=== PATIENT | female | born 1975 | race Caucasian/White ===

== ENCOUNTER 2018-11-01 12:49 | Emergency (ER) | payer BC ==
--- NOTE | 2018-11-01 13:46 | EDM.PDOC ---
<Joaquina Conti M - Last Filed: 11/01/18 14:35> ED HPI GENERAL MEDICAL PROBLEM - General Chief Complaint: Skin Complaint Stated Complaint: LARGE LUMP ON NECK Time Seen by Provider: 11/01/18 13:21 Source of Information: Reports: Patient History Limitations: Reports: No Limitations - History of Present Illness Onset Date: 10/24/18 Duration: Week(s): (past two weeks) Location: Reports: Neck (left posterior, within hairline at base of neck ) Quality: Reports: Ache, Pressure Severity: Moderate (has increased in past few days and left work to be seen.) Worsens with: Reports: None Associated Symptoms: Reports: No Other Symptoms Left Upper Neck Pain Score (Numeric/FACES): 9 - Related Data Allergies Allergy/AdvReac Type Severity Reaction Status Date / Time No Known Allergies Allergy Verified 01/28/14 11:18 Home Meds: Home Meds Ibuprofen 800 mg PO PRN 12/01/13 [History] Norethindrone [Faby] 0.35 mg PO DAILY 12/01/13 [History] Past Medical History - Past Surgical History HEENT Surgical History: Reports: Other (See Below) Other HEENT Surgeries/Procedures: bronchial cyst removal left side Social & Family History - Tobacco Use Smoking Status *Q: Never Smoker - Caffeine Use Caffeine Use: Reports: Coffee, Soda ED ROS GENERAL - Review of Systems Review Of Systems: ROS reveals no pertinent complaints other than HPI. Constitutional: Reports: No Symptoms Respiratory: Reports: No Symptoms Cardiovascular: Reports: No Symptoms Musculoskeletal: Reports: Neck Pain (not musculoskeletal, superficial dermal pain) Neurological: Reports: Trouble Speaking ED EXAM, SKIN/RASH Exam: See Below Exam Limited By: No Limitations General Appearance: Alert, WD/WN, No Apparent Distress Neck: Normal Inspection, Supple, Non-Tender (except left posterior over palpable mass. ) Respiratory/Chest: No Respiratory Distress Location, Skin: Neck (left posterior at base of hairline. 3 x 4 cm erythematous raised lesion. Fluctuant. Very tender to palpation. ) ED SKIN PROCEDURES - I&D Skin Prep: Isopropyl Alcohol (Alcohol) Local Anesthesia: Lidocaine: 1% with EPI Local Anesthetic Volume: 3cc Area Incised With: 11 Blade Drainage: Bloody, Moderate Amount Probed to Break Up Loculations: Yes Packed With: 1/4 in. Iodoform Sterile Dressinx4(s) Complications: No (prescription for antibiotics given and will follow up with own provider in 3 days for re-packing if necessary.) Course - Vital Signs Last Recorded V/S: Last Vital Signs Temp 98 F 11/01/18 13:08 Pulse 98 11/01/18 13:08 Resp 16 11/01/18 13:08 BP 163/103 H 11/01/18 13:08 Pulse Ox 98 11/01/18 13:08 - Orders/Labs/Meds Orders: Active Orders 24 hr Category Date Time Status CULTURE WOUND + SMEAR [RM] Stat Lab 11/01/18 14:46 Ordered Meds: Medications Discontinued Medications Generic Name Dose Route Start Last Admin Trade Name Freq PRN Reason Stop Dose Admin Lidocaine/Epinephrine 20 ml 11/01/18 13:58 11/01/18 14:41 Xylocaine 1% With Epinephrine 1:100,000 SUBCUT 11/01/18 13:59 20 ml NOW STA Administration Departure - Departure Disposition: Home, Self-Care 01 Clinical Impression: Boil of neck - Discharge Information Referrals: Vinicio Rivera MD [Primary Care Provider] - Forms: ED Department Discharge Additional Instructions: Take full course of antibiotics, Please followup with your primary care provider in 3-5 days if not better, please call return to the emergency department with worsening of symptoms. - My Orders Last 24 Hours: My Active Orders 11/01/18 14:46 CULTURE WOUND + SMEAR [RM] Stat - Assessment/Plan Last 24 Hours: My Active Orders 11/01/18 14:46 CULTURE WOUND + SMEAR [RM] Stat <OfficerEfra - Last Filed: 11/01/18 14:53> ED HPI GENERAL MEDICAL PROBLEM - History of Present Illness INITIAL COMMENTS - FREE TEXT/NARRATIVE: 43-year-old female presents emergency department today with red firm area on the back of her neck she states this developed over the last week or so it is painful tender to touch he denies any fevers ED EXAM, SKIN/RASH Text/Narrative:: Agree with exam below Location, Skin: Neck ED SKIN PROCEDURES - I&D Site: neck Departure - Departure Time of Disposition: 14:53 Condition: Fair - Assessment/Plan Plan: Assessment Acuity = acute Site and laterality = boil, neck abcess Etiology = probable bacterial cause Manifestations = none Location of injury = Home Lab values = wound cultures pending Plan She had good relief with the incision and drainage she was placed on Bactrim DS 1 tab by mouth twice a day 10 days to follow-up with her primary care in 3 days for recheck of the wound and repacking if needed This note was dictated using codetag voice recognition software please call with any questions on syntax or grammar.
[2018-11-01] MEDS ORDERED: Lidocaine 1% with EPINEPHrine 1:100,000 50 ML MDV SUBCUT STA (13:58)
== END 2018-11-01 15:01 | disposition home or self-care (01) ==
LOC: JP.ED 12:49
DX: L02.11 Cutaneous abscess of neck (principal); L02.12 Furuncle of neck; Z79.899 Other long term (current) drug therapy
CPT/HCPCS: 10060; 87070; 87077; 87186; 87205; 99284

== ENCOUNTER 2018-11-16 17:00 | Emergency (ER) | payer BC ==
--- NOTE | 2018-11-16 17:52 | EDM.PDOC ---
<Patricia Navarro - Last Filed: 11/16/18 17:46> ED HPI GENERAL MEDICAL PROBLEM - General Chief Complaint: Fever Stated Complaint: ILLNESS Time Seen by Provider: 11/16/18 17:49 Source of Information: Reports: Patient History Limitations: Reports: No Limitations - History of Present Illness INITIAL COMMENTS - FREE TEXT/NARRATIVE: In Sep pt had as bronchiol cyst removed from her left neck. She developed a abcee in the post neckabout 2 weeks ago. She had this drained. This is healing up well. She had 3 weeks of bactrim. Pt now has swelling in the left neck. She is spiking temps and she is very tender. Onset: Other ( Started with a fever on Sat. 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: Musculoskeletal History: Reports: Fracture Other Musculoskeletal History: r ankle fx Dermatologic History: Reports: Other (See Below) Other Dermatologic History: scalp abcess - Infectious Disease History Infectious Disease History: Reports: Chicken Pox, MRSA - Past Surgical History HEENT Surgical History: Reports: Other (See Below) Other HEENT Surgeries/Procedures: bronchial cyst removal left side Sep 1711/2018 GI Surgical History: Reports: Cholecystectomy Social & Family History - Tobacco Use Smoking Status *Q: Current Some Day Smoker Years of Tobacco use: 4 Packs/Tins Daily: 0 Used Tobacco, but Quit: No Tobacco Use Comment: smokes cigars occasionaly Second Hand Smoke Exposure: Yes - Caffeine Use Caffeine Use: Reports: Coffee - Alcohol Use Days Per Week of Alcohol Use: 0 - Recreational Drug Use Recreational Drug Use: No ED ROS ENT - Review of Systems Review Of Systems: See Below Constitutional: Reports: Fever, Malaise, Other ( swelling on the left side of the neck. ) HEENT: Reports: No Symptoms, Other (pt has swelling and tenderness on the left neck area. ) Respiratory: Reports: No Symptoms Cardiovascular: Reports: No Symptoms Endocrine: Reports: No Symptoms GI/Abdominal: Reports: No Symptoms : Reports: No Symptoms Musculoskeletal: Reports: No Symptoms Skin: Reports: No Symptoms ED EXAM, ENT - Physical Exam Exam: See Below Text/Narrative:: pt arrived with a fever and swelling on the left side of her neck. Pt had a bronchiol cyst removed from that side in Sep with Dr Deluca Exam Limited By: No Limitations General Appearance: Alert, Anxious, Mild Distress, Other (pupils are equal and reactive. ) Ears: Normal TMs Nose: Normal Inspection Mouth/Throat: Normal Inspection Head: Atraumatic Neck: Lymphadenopathy (R), Lymphadenopathy (L), Other (Pt has swellin on the left side of the neck. She is very tender in the site. She does have a fever. The culture from the abcess in the back of the neck did show MRSA) Cardiovascular: Regular Rate, Rhythm Neurological: Alert, Oriented, Normal Cognition Psychiatric: Anxious Course - Vital Signs Last Recorded V/S: Last Vital Signs Temp 38.3 C H 11/16/18 19:35 Pulse 111 H 11/16/18 19:35 Resp 16 11/16/18 19:35 BP 131/87 11/16/18 19:35 Pulse Ox 98 11/16/18 19:35 - Orders/Labs/Meds Orders: Active Orders 24 hr Category Date Time Status CULTURE BLOOD [BC] Stat Lab 11/16/18 19:43 Ordered CULTURE BLOOD [BC] Stat Lab 11/16/18 19:44 Ordered Iopamidol [Isovue-300 (61%)] Med 11/16/18 18:00 Active 100 ml IV . DIRECTED Sodium Chloride 0.9% [Normal Saline] 80 ml Med 11/16/18 18:00 Active IV ASDIRECTED Sodium Chloride 0.9% [Saline Flush] Med 11/16/18 17:54 Active 10 ml FLUSH ASDIRECTED PRN Vancomycin 1 gm Med 11/16/18 19:38 Active Sodium Chloride 0.9% [Normal Saline] 250 ml IV ONETIME Medication Orders Sodium Chloride (Normal Saline) 80 mls @ 3 mls/sec IV ASDIRECTED OCTAVIO Last Admin: 11/16/18 18:20 Dose: 3 mls/sec Vancomycin HCl 1 gm/ Sodium (Chloride) 250 mls @ 150 mls/hr IV ONETIME ONE Stop: 11/16/18 21:17 Iopamidol (Isovue-300 (61%)) 100 ml IV . DIRECTED OCTAVIO Last Admin: 11/16/18 18:21 Dose: 100 ml Sodium Chloride (Saline Flush) 10 ml FLUSH ASDIRECTED PRN PRN Reason: Keep Vein Open Last Admin: 11/16/18 18:20 Dose: 10 ml Admin: 11/16/18 18:04 Dose: 10 ml Labs: Laboratory Tests 11/16/18 11/16/18 11/16/18 Range/Units 17:59 17:59 17:59 WBC 4.4 L (4.5-11.0) K/uL RBC 4.61 (3.30-5.50) M/uL Hgb 13.5 (12.0-15.0) g/dL Hct 41.3 (36.0-48.0) % MCV 90 (80-98) fL MCH 29 (27-31) pg MCHC 33 (32-36) % Plt Count 273 (150-400) K/uL Neut % (Auto) 60 (36-66) % Lymph % (Auto) 23 L (24-44) % [place] % (Auto) 13 H (2-6) % Eos % (Auto) 4 (2-4) % Baso % (Auto) 1 (0-1) % Sodium 137 L (140-148) mmol/L Potassium 3.5 L (3.6-5.2) mmol/L Chloride 99 L (100-108) mmol/L Carbon Dioxide 28 (21-32) mmol/L Anion Gap 13.5 (5.0-14.0) mmol/L BUN 16 (7-18) mg/dL Creatinine 0.8 (0.6-1.0) mg/dL Est Cr Clr Drug Dosing 85.64 mL/min Estimated GFR (MDRD) > 60 (>60) Glucose 87 (74-106) mg/dL Calcium 8.5 (8.5-10.1) mg/dL Total Bilirubin 0.2 (0.2-1.0) mg/dL AST 21 (15-37) U/L ALT 23 (12-78) U/L Alkaline Phosphatase 81 (46-116) U/L C-Reactive Protein 1.21 H (0.0-0.3) mg/dL Total Protein 7.6 (6.4-8.2) g/dL Albumin 3.7 (3.4-5.0) g/dL Globulin 3.9 H (2.3-3.5) g/dL Albumin/Globulin Ratio 1.0 L (1.2-2.2) Meds: Medications Generic Name Dose Route Start Last Admin Trade Name Freq PRN Reason Stop Dose Admin Sodium Chloride 80 mls @ 3 mls/sec 11/16/18 18:00 11/16/18 18:20 Normal Saline IV 3 mls/sec ASDIRECTED OCTAVIO Administration Vancomycin HCl 1 gm/ Sodium 250 mls @ 150 mls/hr 11/16/18 19:38 Chloride IV 11/16/18 21:17 ONETIME ONE Iopamidol 100 ml 11/16/18 18:00 11/16/18 18:21 Isovue-300 (61%) IV 100 ml . DIRECTED OCTAVIO Administration Sodium Chloride 10 ml 11/16/18 17:54 11/16/18 18:20 Saline Flush FLUSH 10 ml ASDIRECTED PRN Administration Keep Vein Open Discontinued Medications Generic Name Dose Route Start Last Admin Trade Name Freq PRN Reason Stop Dose Admin Acetaminophen 1,000 mg 11/16/18 19:40 Tylenol Extra Strength PO 11/16/18 19:41 ONETIME ONE Departure - Departure Disposition: Home, Self-Care 01 Clinical Impression: Neck infection - Discharge Information Referrals: Vinicio Rivera MD [Primary Care Provider] - Forms: ED Department Discharge - My Orders Last 24 Hours: My Active Orders 11/16/18 19:38 Vancomycin 1 gm Sodium Chloride 0.9% [Normal Saline] 250 ml IV ONETIME 11/16/18 19:43 CULTURE BLOOD [BC] Stat 11/16/18 19:44 CULTURE BLOOD [BC] Stat - Assessment/Plan Last 24 Hours: My Active Orders 11/16/18 19:38 Vancomycin 1 gm Sodium Chloride 0.9% [Normal Saline] 250 ml IV ONETIME 11/16/18 19:43 CULTURE BLOOD [BC] Stat 11/16/18 19:44 CULTURE BLOOD [BC] Stat <Jose Moctezuma G - Last Filed: 11/16/18 19:50> Course - Vital Signs Text/Narrative:: Case discussed with Dr. Draper, [facility] @ 1938h. Recommends a dose of IV Vanco and then transfer. Dr. Jaimes accepts in transfer @ 1944h Departure - Departure Time of Disposition: 21:25 Condition: Fair - Discharge Information *PRESCRIPTION DRUG MONITORING PROGRAM REVIEWED*: No *COPY OF PRESCRIPTION DRUG MONITORING REPORT IN PATIENT MYRIAM: No
[2018-11-16] MEDS ORDERED: Sodium Chloride 0.9% 80 ML IV SCH (18:00)
[2018-11-16] MEDS ORDERED: Iopamidol 612 MG/ML 100 ML Bottle IV SCH (18:00)
[2018-11-16] MEDS: Sodium Chloride 0.9% 10 ML Syringe FLUSH PRN ×2 (18:04→18:20)
--- NOTE | 2018-11-16 18:54 | CRLCT ---
INDICATION: Tenderness on the left side of the neck TECHNIQUE: CT of the neck with 100 cc Isovue-300 iodinated contrast agent. Coronal and sagittal reconstructions are included. COMPARISON: Neck CT from 02/23/2018 FINDINGS: Since the prior examination, interval resection of the predominantly cystic lesion posterior to the angle of the mandible. This lesion is no longer clearly visualized. There is a cystic and solid appearing mass at the left level 2b luca station, which measures 1.8 centimeters and likely represents a necrotic lymph node. A cystic and solid lymph node is seen at the right level 2b luca station measuring 1.2 centimeters. A cystic/necrotic appearing lesion is seen within the left posterior neck at the margin of the subcutaneous fat and paraspinous fascia, and there is additionally adjacent skin thickening, series 7, image 23. Several other mildly prominent but non necrotic lymph nodes are seen at the bilateral level 2, 3 and 5 luca stations. No inflammatory change within the soft tissues. All the major vascular structures opacify normally with contrast material. Aberrant right subclavian artery. The salivary glands and thyroid gland are normal in appearance. The paranasal sinuses and mastoid air cells are clear. The airway is widely patent. The oral cavity, pharyngeal and laryngeal spaces are normal in appearance. No lytic or blastic process within the imaged osseous structures. No periapical lucencies surrounding the visualized teeth. The paraspinous muscles are symmetric and normal in appearance. Visualized portions of the brain are within normal limits. The orbital contents are normal. No abnormality is demonstrated in the mediastinum or supraclavicular regions. No pneumothorax or pleural effusion. The visualized pulmonary apices are clear. IMPRESSION: 1. Since the prior examination, interval resection of the cystic lesion at the angle of the mandible on the left. There are two new necrotic lymph node seen at the left level IIb and right level IIb luca stations, as well as multiple additional enlarged but none necrotic-appearing lymph nodes at the bilateral level 2, 3 and 5 luca stations. There is additionally a new ill-defined lesion with central cystic change or necrosis within the subcutaneous soft tissues overlying the left posterior paraspinous musculature, with associated skin thickening. 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 The left posterior subcutaneous lesion could potentially represent a squamous cell carcinoma of skin. Direct sampling of any of the cystic/necrotic lesions should be considered. 2. No definite primary malignancy is identified within the nasopharynx, oropharynx or larynx. Please note that all CT scans at this facility use dose modulation, iterative reconstruction, and/or weight-based dosing when appropriate to reduce radiation dose to as low as reasonably achievable. Dictated by Brenton Delgado MD @ Nov 17 2018 8:29AM Signed by Dr. Brenton Delgado @ Nov 17 2018 8:47AM
[2018-11-16] MEDS ORDERED: Acetaminophen 500 MG Tab PO ONE (19:40)
== END 2018-11-16 21:57 ==
LOC: JP.ED 17:00
DX: L08.9 Local infection of the skin and subcutaneous tissue, unspecified (principal); F17.210 Nicotine dependence, cigarettes, uncomplicated; Z79.899 Other long term (current) drug therapy
CPT/HCPCS: 36415; 70491; 80053; 85025; 86140; 87040; 96365; 96366; 99284; A9270; J3370; J7030; J7050; Q9967